=== PATIENT | female | born 1975 | race Caucasian/White ===

== ENCOUNTER 2017-11-20 16:47 | Inpatient (IN) | payer BC ==
[2017-11-20 17:21] LABS: ADD MAN DIFF? NO
[2017-11-20 17:22] LABS: WHITE BLOOD COUNT 12.8 10^3/ul (4.8-10.8)
[2017-11-20 17:22] LABS: BASOPHIL # 0.1 10^3/ul (0.0-0.1); BASOPHILS % 0.5 % (0.0-2.0); EOSINOPHILS # 0.5 10^3/ul (0.0-0.5); EOSINOPHILS % 3.5 % (0.0-7.0); HEMATOCRIT 37.2 % (37.0-47.0); HEMOGLOBIN 11.9 g/dl (12.0-16.0); LYMPHOCYTES # 3.8 10^3/ul (0.8-2.9); LYMPHOCYTES % 29.7 % (15.0-51.0); MEAN CORPUSCULAR HEMOGLOBIN 25.3 pg (29.0-33.0); MEAN CORPUSCULAR VOLUME 79.1 fl (82.0-101.0); MEAN PLATELET VOLUME 9.4 fl (7.4-10.4); MONOCYTE # 0.7 10^3/ul (0.3-0.9); MONOCYTES % 5.4 % (0.0-11.0); NEUTROPHIL # 7.8 10^3/ul (1.6-7.5); NEUTROPHILS % 60.3 % (39.0-77.0); PLATELET COUNT 342 10^3/UL (140-415); RED CELL DISTRIBUTION WIDTH 14.9 % (11.5-14.5)
[2017-11-20] MEDS: LIDOCAINE/MYLANTA 40 ML BTL PO (17:37)
[2017-11-20] MEDS: ASPIRIN 325 MG TAB PO (17:37)
[2017-11-20 17:42] LABS: ANION GAP 15 (8-16); BLOOD UREA NITROGEN 14 mg/dl (7-20); CARBON DIOXIDE 26 mmol/L (21-31); CHLORIDE 106 mmol/L (97-110); CREATININE 0.77 mg/dl (0.44-1.00); GLUCOSE 127 mg/dl (70-220); INR 0.95; POTASSIUM 3.5 mmol/L (3.5-5.1); PROTIME 12.8 Sec (11.9-14.9); SODIUM 143 mmol/L (135-144)
[2017-11-20 17:53] LABS: TROPONIN-I < 0.010 ng/ml (0.000-0.120)
[2017-11-20] MEDS ORDERED: NITROGLYCERIN (SL) 0.4 MG TAB SL ×2 (18:30→22:00)
[2017-11-20] MEDS: NITROGLYCERIN (SL) 0.4 MG TAB SL (18:50)
[2017-11-20] MEDS ORDERED: NACL 0.9% 3 ML SYG IV (22:00)
[2017-11-20] MEDS ORDERED: ACETAMINOPHEN 325 MG TAB PO (22:00)
[2017-11-20] MEDS ORDERED: ONDANSETRON 4 MG INJ IV (22:00)
[2017-11-20] MEDS: SOD CHLORIDE 0.9% 100 ML (23:37)
[2017-11-20] MEDS: IOHEXOL 100 ML (23:37)
[2017-11-21 00:10] LABS: CREATINE KINASE 125 IU/L (23-200)
[2017-11-21 00:23] LABS: CK INDEX 0.4; CK-MB 0.52 ng/ml (0.0-2.4); TROPONIN-I < 0.010 ng/ml (0.000-0.120)
[2017-11-21] MEDS: PANTOPRAZOLE (EC) 40 MG TAB PO (06:22)
[2017-11-21] MEDS: ASPIRIN 81 MG TAB PO (08:10)
[2017-11-21] MEDS: ENOXAPARIN 40 MG/0.4 ML SYG SC (08:27)
[2017-11-21] MEDS ORDERED: NON-FORMULARY/PATIENT OWN MED (Valsartan-Hydrochlorothiazide (Valsartan-HCTZ) 1 TAB) PO (09:00)
[2017-11-21] MEDS: HYDROCHLOROTHIAZIDE 25 MG TAB PO (09:06)
[2017-11-21] MEDS: LOSARTAN 50 MG TAB PO (09:06)
[2017-11-21 09:11] LABS: ADD MAN DIFF? NO
[2017-11-21 09:14] LABS: BASOPHIL # 0.1 10^3/ul (0.0-0.1); BASOPHILS % 0.5 % (0.0-2.0); EOSINOPHILS # 0.3 10^3/ul (0.0-0.5); EOSINOPHILS % 3.3 % (0.0-7.0); HEMATOCRIT 37.8 % (37.0-47.0); HEMOGLOBIN 11.5 g/dl (12.0-16.0); LYMPHOCYTES # 2.6 10^3/ul (0.8-2.9); LYMPHOCYTES % 25.4 % (15.0-51.0); MEAN CORPUSCULAR HEMOGLOBIN 24.7 pg (29.0-33.0); MEAN CORPUSCULAR HGB CONC 30.4 g/dl (32.0-37.0); MEAN CORPUSCULAR VOLUME 81.1 fl (82.0-101.0); MEAN PLATELET VOLUME 9.6 fl (7.4-10.4); MONOCYTE # 0.5 10^3/ul (0.3-0.9); MONOCYTES % 5.3 % (0.0-11.0); NEUTROPHIL # 6.5 10^3/ul (1.6-7.5); NEUTROPHILS % 65.1 % (39.0-77.0); PLATELET COUNT 333 10^3/UL (140-415); RED BLOOD COUNT 4.66 10^6/ul (4.20-5.40); RED CELL DISTRIBUTION WIDTH 15.2 % (11.5-14.5)
[2017-11-21 09:46] LABS: HEMOGLOBIN A1C 6.1 % (0-5.9)
[2017-11-21 09:52] LABS: CREATINE KINASE 108 IU/L (23-200)
[2017-11-21 10:03] LABS: CK INDEX 0.5; CK-MB 0.54 ng/ml (0.0-2.4); TROPONIN-I < 0.010 ng/ml (0.000-0.120)
[2017-11-21 10:05] LABS: ALANINE AMINOTRANSFERASE 12 IU/L (13-69); ALBUMIN 3.6 g/dl (3.3-4.9); ALBUMIN/GLOBULIN RATIO 1.05; ALKALINE PHOSPHATASE 80 IU/L (42-121); ANION GAP 12 (8-16); ASPARTATE AMINO TRANSFERASE 19 IU/L (15-46); BILIRUBIN,INDIRECT 0.2 mg/dl (0-1.1); BILIRUBIN,TOTAL 0.2 mg/dl (0.2-1.3); BLOOD UREA NITROGEN 16 mg/dl (7-20); CALCIUM 8.7 mg/dl (8.4-10.2); CARBON DIOXIDE 30 mmol/L (21-31); CHLORIDE 103 mmol/L (97-110); CHOLESTEROL 162 mg/dl (100-200); CREATININE 0.81 mg/dl (0.44-1.00); GLUCOSE 91 mg/dl (70-220); HDL CHOLESTEROL 53 mg/dl (34-88); LDL CHOLESTEROL,CALCULATED 79 mg/dl; MAGNESIUM 2.1 mg/dl (1.7-2.5); POTASSIUM 3.9 mmol/L (3.5-5.1); SODIUM 141 mmol/L (135-144); TRIGLYCERIDES 148 mg/dl (0-149)
[2017-11-21 10:09] LABS: FREE T4 (FREE THYROXINE) 1.07 ng/dl (0.64-1.79)
[2017-11-21 15:30] LABS: TROPONIN-I < 0.010 ng/ml (0.000-0.120)
== END 2017-11-21 19:27 | disposition home or self-care (01) | DRG 313 ==
LOC: E/R 16:47 → TEL 22:56
DX: R07.9 Chest pain, unspecified (principal); Z68.43 Body mass index [BMI] 50.0-59.9, adult; E66.01 Morbid (severe) obesity due to excess calories; I10 Essential (primary) hypertension; Z79.82 Long term (current) use of aspirin; Z71.3 Dietary counseling and surveillance
CPT/HCPCS: 36415; 71045; 71275; 80048; 80053; 80061; 81025; 82550; 82553; 83036; 83735; 84439; 84443; 84484; 85025; 85610; 93005; 93306; 99285-25

== ENCOUNTER 2017-11-22 09:47 | Emergency (ER) | payer BC | END 2017-11-22 16:21 | disposition home or self-care (01) | LOC: E/R 09:47 | DX: M79.604 Pain in right leg (principal); M79.605 Pain in left leg; E66.01 Morbid (severe) obesity due to excess calories; I10 Essential (primary) hypertension; R40.2142 Coma scale, eyes open, spontaneous, at arrival to emergency department; R40.2362 Coma scale, best motor response, obeys commands, at arrival to emergency department; R40.2252 Coma scale, best verbal response, oriented, at arrival to emergency department; Z68.43 Body mass index [BMI] 50.0-59.9, adult | CPT/HCPCS: 93005; 93970; 99284-25 ==